=== PATIENT | male | born 1945 | race Caucasian/White ===

== ENCOUNTER → 2017-02-07 | Outpatient (CLI) | payer MEDICARE, BC ==
[~2017-02-07] MED LIST: ASCORBIC ACID PO; ASPIRIN81 M1 PO; ASPIRIN81 M2 PO; AVALIDE 150-12.1 TAB PO; B12; CALCIUM + D 6001 TA1 PO; CALCIUM500 MG PO; DILTIAZEM HCL60 MG PO; FISH OIL500 M1 PO; FLOMAX0.4 M1 PO; GARLIC1 MG PO; LIPITOR PO; LISINOPRIL-HCTZ1 T14 PO; LISINOPRIL10 MG PO; LISINOPRIL20 MG PO; MULTI-DAY VITAM1 TAB PO; MULTI-DAY1 TAB PO; NASONEX17 GM; ODORLESS GARL1250 MG PO; PANTOPRAZOLE SO40 MG PO; PERCOCET 5-3251 TAB PO; PHENERGAN25 MG PO; PV NEURO VITE T1 TAB; RESTASIS32 EA OP; ROSEHIPS PO; SIMVASTATIN20 MG PO; VIT B 6 PO; VIT E PO; VITAMIN B650 MG PO; VITAMIN C500 M1 PO
--- NOTE | ~2017-02-07 | US85 ---
[facility] A Service of [facility] RADIOLOGY TEXT RESULTS PATIENT: RALEIGH MARQUEZ LOCATION: CNIV : 43 UNIT #: [id number] AGE: [address]: Danny Figueredo MD SEX: M ORDER DR: [id number] [facility] [address] [place], [place] [address] [id number] O MR#: [id number] Acc #: [id number] NAME: RALEIGH MARQUEZ : 1945 SEX: M STUDY DATE/TIME: 02/07/2017 10:23 UNIT: CNIV ROOM: STUDY DESCRIPTION: [facility] [place] [facility] Attending Physician: Danny Figueredo M.D. Referring Physician: Danny Figueredo M.D. Ordering Physician: Danny Figueredo M.D. Primary Care Physician: Danny Figueredo M.D. MEDICAL IMAGING REPORT This report is preliminary unless electronic signature is present EXAM Left lower extremity venous ultrasound. HISTORY Left lower extremity pain in calf for 1 week. Daily aspirin. No injury. TECHNIQUE Real time ultrasonography of the left lower extremity venous structures performed. Leon-scale, color Doppler, Doppler pulse wave interrogation utilized. FINDINGS The left common femoral vein, femoral vein, profunda femoris vein, and popliteal vein are patent with normal compressibility and normal color Doppler interrogation. The posterior tibial vein shows absence of flow and noncompressibility consistent with DVT in the left posterior tibial vein. The left peroneal and anterior tibial veins are patent. Greater saphenous vein is patent with normal compressibility and normal Doppler pulse wave interrogation. IMPRESSION 1. Study positive for deep venous thrombosis in the left posterior tibial vein. Copyist indicates that she has discussed these findings directly with Dr. Figueredo and Dr. Figueredo has been in contact with the patient. Remainder of the left lower extremity deep venous structures are patent with no other areas of DVT. 2. No left lower extremity superficial venous thrombosis. Dictated by... Manuel Brenner M.D. [facility] A Service of [facility] RADIOLOGY TEXT RESULTS PATIENT: RALEIGH MARQUEZ LOCATION: [facility] : 43 UNIT #: [id number] AGE: [address]: Danny Figueredo MD SEX: M ORDER DR: THIS IS AN ELECTRONICALLY VERIFIED REPORT Manuel Brenner M.D. at 02/08/2017 3:50 PM Sunil TD: 02/07/2017 12:54 JOB #: [id number] MEDICAL IMAGING REPORT Page 1 of 1 COPY
== END | disposition home or self-care (01) ==
LOC: CNIV 09:49
DX: M79.605 Pain in left leg (principal); I82.442 Acute embolism and thrombosis of left tibial vein
CPT/HCPCS: 93971